=== PATIENT | female | born 1960 | race Caucasian/White ===

== ENCOUNTER 2019-02-04 17:09 | Emergency (ER) | payer SELFPAY ==
[2019-02-04] MEDS ORDERED: DIPHTH,PERTUSS(ACELL),TET 0.5 ML DISP.SYRIN IM ONE ×2 (17:50→17:59)
[2019-02-04] MEDS ORDERED: ACETAMINOPHEN 325 MG TABLET (FP) PO ONE (17:50)
[2019-02-04 17:51] VITALS: BP 147/87; PULSE 84; TEMP 98; BMI 24.2
--- NOTE | 2019-02-04 17:51 | PDOC ---
Rapid Medical Evaluation Time Seen by Provider: 02/04/19 17:46 Medical Evaluation: Allergies Allergy/AdvReac Type Severity Reaction Status Date / Time No Known Allergies Allergy Verified 02/04/19 17:46 02/04/19 17:47 The patient presents to the ER for dog bites to her RLE and L foot. She was bit by her neighbors dog. Her neighbor is with her and states his dog has all its shots. She does not remember the date of her last tetanus Exam: deep bite to the R medial calf approx 1cm round. 1cm linear laceration to the L ventral foot. No active bleeding Orders: boostrix, tylenol Pt to proceed to the ER for further evaluation Discharge Disposition - Diagnosis Dog bite - Referrals - Patient Instructions - Post Discharge Activity
--- NOTE | 2019-02-04 17:58 | PDOC ---
History of Present Illness - General Chief Complaint: Bite Stated Complaint: DOG BITE Time Seen by Provider: 02/04/19 17:46 Past History - Past Medical History Allergies/Adverse Reactions: Allergies Allergy/AdvReac Type Severity Reaction Status Date / Time No Known Allergies Allergy Verified 02/04/19 17:46 - Suicide/Smoking/Psychosocial Hx Smoking History: Never smoked Have you smoked in the past 12 months: No Hx Alcohol Use: No Drug/Substance Use Hx: No *Physical Exam - Vital Signs Last Vital Signs Temp Pulse Resp BP Pulse Ox 98 F 84 18 147/87 99 02/04/19 17:47 02/04/19 17:47 02/04/19 17:47 02/04/19 17:47 02/04/19 17:47 *DC/Admit/Observation/Transfer Diagnosis at time of Disposition: Dog bite - Referrals - Patient Instructions - Post Discharge Activity
[2019-02-04] MEDS ORDERED: ACETAMINOPHEN 325 MG TABLET (FP) ONE (17:59)
--- NOTE | 2019-02-04 18:31 | PDOC ---
History of Present Illness - General Chief Complaint: Bite Stated Complaint: DOG BITE Time Seen by Provider: 02/04/19 17:46 - History of Present Illness Initial Comments: 02/04/19 18:16 58-year-old female without comorbidities not current on tetanus presents for evaluation of dog bite. Patient owns a garage the tendon of her garage has a dog that bit the patient unprovoked. The cyber transport systems specialist of the dog is here with the patient dog is vaccinated. She complains of right calf pain and left foot pain where the dog bites are. Past History - Past Medical History Allergies/Adverse Reactions: Allergies Allergy/AdvReac Type Severity Reaction Status Date / Time No Known Allergies Allergy Verified 02/04/19 17:46 Home Medications: Ambulatory Orders Amox-Tr/K Cl [Augmentin - 875Mg Tablet] 1 tab PO BID #20 tablet 02/04/19 - Suicide/Smoking/Psychosocial Hx Smoking History: Never smoked Have you smoked in the past 12 months: No Hx Alcohol Use: No Drug/Substance Use Hx: No Review of Systems - Review of Systems Musculoskeletal: Yes: See HPI *Physical Exam - Vital Signs Last Vital Signs Temp Pulse Resp BP Pulse Ox 98 F 84 18 147/87 99 02/04/19 17:47 02/04/19 17:47 02/04/19 17:47 02/04/19 17:47 02/04/19 17:47 - Physical Exam Comments: 02/04/19 18:16 There is approximately a 3 cm circumferential dermal avulsion exposing subcutaneous fat in a circular pattern on the medial aspect of the right calf. There is also a superficial linear laceration on the lateral aspect of the left foot. There are no gross sensory motor deficits neurovascular intact. ED Treatment Course - RADIOLOGY Radiology Studies Ordered: Category Date Time Status FOOT-LEFT [RAD] Stat Radiology 02/04/19 18:05 Ordered LEG TIB/FIB-RIGHT [RAD] Stat Radiology 02/04/19 18:05 Ordered - Medications Given in the ED: ED Medications Discontinued Medications Generic Name Dose Route Start Last Admin Trade Name Freq PRN Reason Stop Dose Admin Acetaminophen 650 mg 02/04/19 17:50 02/04/19 18:03 Tylenol - PO 02/04/19 17:51 650 mg ONCE ONE Administration Diphtheria/Tetanus/Acell Pertussis 0.5 ml 02/04/19 17:50 02/04/19 18:06 Boostrix - IM 02/04/19 17:51 0.5 ml .ONCE ONE Administration Medical Decision Making - Medical Decision Making 02/04/19 18:17 X-rays of the right tib-fib and left foot show no evidence of fracture or foreign body. Tetanus updated infection prophylaxis with Augmentin and follow up with general surgery. Discussed abuse of wet-to-dry dressing changes for the wounds. Primary closure cannot be done on the right medial calf wound itself until her and the edges are unable to be approximated. Left foot wound is superficial *DC/Admit/Observation/Transfer Diagnosis at time of Disposition: Dog bite - Discharge Dispostion Disposition: HOME Condition at time of disposition: Stable Decision to Admit order: No - Referrals Referrals: Arsh Almodovar MD [Staff Physician] - - Patient Instructions Additional Instructions: Please take the antibiotics as directed. Continue with the wet-to-dry dressing changes as you have shown today in the emergency room for the next 3 days. After 3 days he may reduce the dressing changes to once a day at night. Leaving the areas of the dog bite open to air as much as possible. Do not apply any ointments such as bacitracin or Neosporin. He may wash the area gently with soap and water in the shower and Betadine in between dressing changes. Please follow-up with Gen. surgery in 1-2 days for further evaluation and treatment options and wound care. Return to the emergency room for worsening symptoms or any concerns such as increasing pain and redness swelling or drainage from the areas of the wounds. These may be signs of infection. Tylenol and Motrin as directed for pain. - Post Discharge Activity
== END 2019-02-04 19:02 | disposition home or self-care (01) ==
LOC: JERFT 17:09
PROC: 3E0234Z Introduction of Serum, Toxoid and Vaccine into Muscle, Percutaneous Approach (ICD-10-PCS; principal; 2019-02-04)
DX: S81.851A Open bite, right lower leg, initial encounter (principal); W54.0XXA Bitten by dog, initial encounter; Y93.89 Activity, other specified; Y92.89 Other specified places as the place of occurrence of the external cause
CPT/HCPCS: 73590-TC-RT-FY; 73630-TC-LT; 90715; 99281-25

== ENCOUNTER 2022-05-09 09:11 | Emergency (ER) | payer OTHER ==
[2022-05-09 09:20] VITALS: BP 146/84; PULSE 81; RESP 18; TEMP 98.2; BMI 22.9
[2022-05-09] MEDS ORDERED: ACETAMINOPHEN 1000 MG/100 ML BAG IVPB ONE (09:55)
[2022-05-09] MEDS ORDERED: SODIUM CHLORIDE 0.9% 500 ML INFUS.BAG IV ONE (09:55)
[2022-05-09] MEDS ORDERED: ACETAMINOPHEN INJECTION 100 ML IVPB ONE (09:59)
[2022-05-09 10:43] LABS: BASO % 1.3 % (0-2.0); EOS % 1.3 % (0-4.5); HEMATOCRIT 41.2 % (32.4-45.2); HEMOGLOBIN 13.8 GM/dL (10.7-15.3); LYMPH % 27.7 % (8-40); MCHC 33.5 g/dl (32.0-36.0); MEAN CELL VOLUME 89.6 fl (80-96); MEAN PLT VOLUME 9.4 fl (7.5-11.1); MONO % 7.4 % (3.8-10.2); NEUT % 62.3 % (42.8-82.8); PLATELET COUNT 265 10^3/uL (134-434); RBC 4.59 M/mm3 (3.60-5.2); RDW 13.1 % (11.6-15.6); WHITE BLOOD COUNT 5.6 K/mm3 (4.0-10.0)
[2022-05-09 10:53] LABS: EPI CELLS 6 /uL (0-25.1); HYALINE CASTS 0 /uL (0-3.1); PH,URINE 5.5 (5.0-8.0); URINE APPEARANCE CLEAR; URINE BACTERIA 89 /uL (0-1359); URINE BILIRUBIN NEGATIVE (NEGATIVE); URINE COLOR YELLOW; URINE GLUCOSE (UA) NEGATIVE (NEGATIVE); URINE KETONE NEGATIVE (NEGATIVE); URINE LEUK ESTERASE NEGATIVE (NEGATIVE); URINE NITRITE NEGATIVE (NEGATIVE); URINE PROTEIN NEGATIVE (NEGATIVE); URINE RBC 18 /uL (0-23.9); URINE UROBILINOGEN 0.2 mg/dL (0.2-1.0); URINE WBC 6 /uL (0-25.8)
[2022-05-09 11:06] LABS: CALCIUM 9.5 mg/dL (8.5-10.1)
[2022-05-09 11:08] LABS: ALBUMIN 3.8 g/dl (3.4-5.0); BLOOD UREA NITROGEN 11.6 mg/dL (7-18)
[2022-05-09 11:10] LABS: CREATININE 0.5 mg/dL (0.55-1.3)
[2022-05-09 11:11] LABS: BILIRUBIN,TOTAL 0.4 mg/dL (0.2-1)
[2022-05-09 11:12] LABS: TOT PROT 7.2 g/dl (6.4-8.2)
== END 2022-05-09 15:00 | disposition home or self-care (01) ==
LOC: JER 09:11
PROC: 3E0333Z Introduction of Anti-inflammatory into Peripheral Vein, Percutaneous Approach (ICD-10-PCS; principal; 2022-05-09)
DX: R10.9 Unspecified abdominal pain (principal)
CPT/HCPCS: 36415; 74177-TC; 80053; 81003; 85025; 87086; 99285-25; Q9967